=== PATIENT | male | born 1935 ===

== ENCOUNTER 2017-02-11 09:25 | Observation (INO) | payer OTHER ==
[2017-02-11] MEDS ORDERED: ASPIRIN EC 325 MG TAB PO ONE ×2 (09:40→10:17)
[2017-02-11] MEDS ORDERED: NS 1,000 ML IV ONE (09:40)
[2017-02-11] MEDS ORDERED: FAMOTIDINE 20 MG TAB PO ONE (09:40)
[2017-02-11] MEDS ORDERED: DIAZEPAM 5 MG TAB PO ONE (09:40)
[2017-02-11] MEDS ORDERED: diphenhydrAMINE 25 MG CAP PO ONE ×2 (09:40→10:17)
[2017-02-11 10:12] LABS: % IMMATURE GRANULYOCYTES 0.4 % (0.0-1.1); ABSOLUTE IMMATURE GRANULOCYTES 0.03 10^3/uL (0.00-0.10); ADD DIFF? NO; ADD MORPH? NO; ADD SCAN? NO; ATYPICAL LYMPHOCYTE FLAG 0 (0-99); FRAGMENT RBC FLAG 0 (0-99); HEMATOCRIT 50.8 % (40.0-51.0); HEMOGLOBIN 16.9 g/dL (13.7-17.5); LEFT SHIFT FLG 10 (0-99); LIPEMIA HEMOLYSIS FLAG 80 (0-99); MEAN CELL HEMOGLOBIN 30.8 pg (27.9-34.1); MEAN CELL HEMOGLOBIN CONCENTR. 33.3 g/dL (32.4-36.7); MEAN CELL VOLUME 92.7 fL (81.5-99.8); MEAN PLATELET VOLUME 9.5 fL (8.7-11.7); PLATELET CLUMPS FLAG 10 (0-99); PLATELET COUNT 251 10^3/uL (150-400); RED BLOOD CELL COUNT 5.48 10^6/uL (4.40-6.38); RED CELL DISTRIBUTION WIDTH 12.9 % (11.5-15.2)
[2017-02-11] MEDS ORDERED: DIAZEPAM 5 MG TAB ONE (10:17)
[2017-02-11] MEDS ORDERED: FAMOTIDINE 20 MG TAB ONE (10:17)
[2017-02-11 10:25] LABS: INR 1.14 (0.83-1.16); PROTIME(PATIENT) 14.5 SEC (12.0-15.0)
--- NOTE | 2017-02-11 10:28 | CPEKG ---
Heart Rate: 58 RR Interval: 1034 P-R Interval: 172 QRSD Interval: 138 QT Interval: 452 QTC Interval: 445 P Charlotte: -60 QRS Charlotte: -82 T Wave [place]: 18 EKG Severity - ABNORMAL ECG - EKG Impression: SINUS OR ECTOPIC ATRIAL RHYTHM EKG Impression: RIGHT BUNDLE BRANCH BLOCK EKG Impression: unchanged from EKG of 01/12/2016 Electronically Signed By: Indra Gustafson 11-Feb-2017 10:35:01
[2017-02-11 10:33] LABS: ANION GAP 12 mEq/L (8-16); CALCIUM 9.9 mg/dL (8.5-10.4); CARBON DIOXIDE 23 mEq/l (22-31); CHLORIDE 107 mEq/L (97-110); CHOLESTEROL 154 mg/dL (140-220); CHOLESTEROL/HDL RATIO 4.28 RATIO (1.00-4.97); CREATININE 1.1 mg/dL (0.7-1.3); GLOMERULAR FILTRATION RATE > 60; GLUCOSE 79 mg/dL (70-100); HIGH DENSITY LIPOPROTEIN 36 mg/dL (40-65); LDL/HDL RATIO 2.19 RATIO (1.00-3.64); LOW DENSITY LIPOPROTEIN 79 mg/dL (80-100); MAGNESIUM 2.3 mg/dL (1.6-2.3); NON-HIGH DENSITY LIPOPROTEIN 118 mg/dL (90-129); POTASSIUM 4.2 mEq/L (3.5-5.2); SODIUM 142 mEq/L (134-144); TRIGLYCERIDE 197 mg/dL (40-150); VERY LOW DENSITY LIPOPROTEINS 39 mg/dL (8-25)
[2017-02-11] MEDS ORDERED: MIDAZOLAM 2 MG/2 ML VIAL ONE (12:41)
[2017-02-11] MEDS ORDERED: VERAPAMIL 5 MG/2 ML VIAL ONE (12:41)
[2017-02-11] MEDS ORDERED: HEPARIN 10,000 UNIT/10 ML MDV ONE (12:41)
[2017-02-11] MEDS ORDERED: fentaNYL 100 MCG/2 ML INJ ONE (12:41)
[2017-02-11] MEDS ORDERED: LIDOCAINE 1% 300 MG/30 ML SDV ONE (12:41)
[2017-02-11] MEDS ORDERED: IOPAMIDOL (ISOVUE-370) 150 ML BTL IV ONE (12:42)
[2017-02-11] MEDS ORDERED: CLOPIDOGREL BISULFATE 75 MG TAB ONE (14:44)
--- NOTE | 2017-02-11 15:19 | CPEKG ---
Heart Rate: 54 RR Interval: 1111 P-R Interval: 200 QRSD Interval: 130 QT Interval: 472 QTC Interval: 448 P [place]: 52 QRS [place]: -66 T Wave [place]: 41 EKG Severity - ABNORMAL ECG - EKG Impression: SINUS RHYTHM EKG Impression: RBBB AND LAFB Electronically Signed By: Rashi Garcia 12-Feb-2017 12:23:08
[2017-02-11] MEDS ORDERED: CLOPIDOGREL BISULFATE 75 MG TAB PO ONE (18:20)
[2017-02-11] MEDS ORDERED: LORazepam 2 MG/ML INJ IVP PRN (18:20)
[2017-02-11] MEDS ORDERED: ATROPINE SULFATE 1 MG/10 ML SYR IVP PRN (18:20)
[2017-02-11] MEDS ORDERED: ONDANSETRON DISINTEGRATING 4 MG TAB PO PRN (18:20)
[2017-02-11] MEDS ORDERED: ONDANSETRON 4 MG/2 ML VIAL IVP PRN (18:20)
[2017-02-11] MEDS ORDERED: NITROGLYCERIN 0.4 MG BTL SL PRN (18:20)
[2017-02-11] MEDS ORDERED: TEMAZEPAM 15 MG CAP PO PRN (18:20)
[2017-02-11] MEDS ORDERED: ACETAMINOPHEN 325 MG TAB PO PRN (18:20)
[2017-02-11] MEDS ORDERED: NS 1,000 ML IV SCH (18:30)
--- NOTE | 2017-02-11 19:56 | CPEKG ---
Heart Rate: 48 RR Interval: 1250 P-R Interval: 180 QRSD Interval: 142 QT Interval: 464 QTC Interval: 415 P Ace: -67 QRS Ace: -72 T Wave Ace: 38 EKG Severity - ABNORMAL ECG - EKG Impression: SINUS OR ECTOPIC ATRIAL BRADYCARDIA EKG Impression: PROBABLE LEFT ATRIAL ABNORMALITY EKG Impression: RIGHT BUNDLE BRANCH BLOCK EKG Impression: LATERAL INFARCT, OLD Electronically Signed By: Rashi Garcia 12-Feb-2017 12:23:40
--- NOTE | 2017-02-11 20:10 | CPIP ---
[f rep st] INVASIVE CARDIAC PROCEDURE DATE OF PROCEDURE: 02/11/2017 PROCEDURES PERFORMED: 1. Selective coronary angiography. 2. Left heart catheterization. 3. Left ventriculogram. 4. Percutaneous transluminal coronary angioplasty and stent placement to the left anterior descendi ng with the use of a 3.0 x 12 Synergy drug-eluting stent, postdilated with a 3.25 x 12 NC balloon. COMPLICATIONS: None. INDICATION FOR THE PROCEDURE: High risk stress test in a patient with new onset fatigue and nausea. The patient has [place] Heart Association class 3 symptoms of breathlessness with minimal exertio n on the basis of his resting fatigue. The patient had minimal symptoms prior to his heart attack a nd was found to have a new perfusion deficit within the LAD territory with a drop in his ejection fr action to an estimated 30% to 35%. For this reason, he was taken to the catheterization laboratory. PROCEDURE IN DETAIL: After informed consent was obtained, n.p.o. status was confirmed, the region o f the left wrist was cleaned, prepped, and draped in sterile fashion. The modified and plethysmogra phy trace-assisted Jose test was performed, documenting a dual arterial supply of the left index fi nger. A 6-[place] sheath was placed to the left radial artery using modified Seldinger technique. T here was some difficulty in navigating the forearm into the region of the brachial artery. For this reason, a right radial approach would not be recommended in the future. Only we were able to proce ed with diagnostic catheterization with the use of 5-[place] JL4 and JR4 coronary catheters as well a s a 5-[place] Fede right catheter. A 5-[place] pigtail catheter was also utilized. Standard wire exchange technique was utilized for all catheter exchanges. The right coronary artery was 3 mm in size and is dominant giving rise to the posterior descending a s well as a posterolateral ventricular branch. The stent in the midbody of the right coronary arter y is widely patent without evidence of flow-limiting obstruction. There was excellent and JOSE-3 fl ow to the distal vessel. The left main coronary lumen is approximately 6 mm in size. It bifurcates into an LAD and circumflex system. The LAD has been previously stented in the distal margin of the stented segment. There is angiographic evidence on the AP and AP caudal projection of at least a 5 0% angiographic lesion. When we performed PTCA with computerized analysis, this was found to be a 6 9.2 plaque area stenosis in the region corresponding with a nuclear perfusion deficit. There was TI OK-3 flow to the distal vessel without evidence of active clot. There was evidence of dye streaming within the LAD, consistent with abnormal flow characteristics. The left circumflex was free of significant flow-limiting disease. It was unchanged from catheteriz ation performed by mi May of 2014. The patient underwent left heart catheterization demonstrating elevated left ventricular end diastol ic pressure measured at 14 mmHg. The patient underwent left ventriculogram and [facility] left ventricular systolic function. Ejection fraction was 65% without severe segmental wall motion abnormalities. We then turned our attention to the lesion in question. A 6-[place] JL4 guiding catheter was used fo r guide catheter support. A 0.014 [place] J was advanced across the lesion in the LAD. The vessel was then primarily stented with the use of a 3.0 x 12 Synergy drug-eluting stent and was postdilate d for inadequate stent expansion with a noncompliant 3.25 x 12 NC balloon at a maximum of 20 atmosph eres of pressure with approximately a 10% residual stenosis, status post PTCA and stent placement wi th improved flow characteristics post stent and post stent dilation. The patient tolerated the proc edure well without immediate complication. Returned to the post cath recovery unit with a TR band r adial arteriotomy site repair. Copy requested to: Primary Care Physician /[id number]/MODL
[2017-02-12 04:38] LABS: % IMMATURE GRANULYOCYTES 0.3 % (0.0-1.1); ABSOLUTE IMMATURE GRANULOCYTES 0.03 10^3/uL (0.00-0.10); ADD DIFF? NO; ADD MORPH? NO; ADD SCAN? NO; ATYPICAL LYMPHOCYTE FLAG 0 (0-99); FRAGMENT RBC FLAG 0 (0-99); HEMATOCRIT 44.1 % (40.0-51.0); HEMOGLOBIN 15.1 g/dL (13.7-17.5); LEFT SHIFT FLG 10 (0-99); LIPEMIA HEMOLYSIS FLAG 90 (0-99); MEAN CELL HEMOGLOBIN 31.1 pg (27.9-34.1); MEAN CELL HEMOGLOBIN CONCENTR. 34.2 g/dL (32.4-36.7); MEAN CELL VOLUME 90.9 fL (81.5-99.8); MEAN PLATELET VOLUME 10.2 fL (8.7-11.7); PLATELET CLUMPS FLAG 10 (0-99); PLATELET COUNT 217 10^3/uL (150-400); RED BLOOD CELL COUNT 4.85 10^6/uL (4.40-6.38); RED CELL DISTRIBUTION WIDTH 12.8 % (11.5-15.2)
[2017-02-12 05:04] LABS: ALBUMIN 3.3 g/dL (3.5-5.0); ANION GAP 9 mEq/L (8-16); ASPARTATE AMINOTRANSFERASE 17 IU/L (17-59); BILIRUBIN,TOTAL 0.4 mg/dL (0.1-1.4); CARBON DIOXIDE 20 mEq/l (22-31); CHLORIDE 110 mEq/L (97-110); GLOMERULAR FILTRATION RATE > 60; GLUCOSE 85 mg/dL (70-100); LACTATE DEHYDROGENASE 372 IU/L (313-618); MAGNESIUM 2.3 mg/dL (1.6-2.3); POTASSIUM 4.2 mEq/L (3.5-5.2); SODIUM 139 mEq/L (134-144)
[2017-02-12] MEDS ORDERED: LEVOTHYROXINE 112 MCG TAB PO SCH (06:00)
[2017-02-12 07:25] VITALS: BP 130/75; PULSE 66; RESP 13; TEMP 97.6; O2SAT 96
[2017-02-12] MEDS ORDERED: CARVEDILOL 3.125 MG TAB PO SCH (08:00)
[2017-02-12] MEDS ORDERED: ASPIRIN EC 325 MG TAB PO SCH (09:00)
[2017-02-12] MEDS ORDERED: MAGNESIUM OXIDE 400 MG TAB PO SCH (09:00)
[2017-02-12] MEDS ORDERED: CLOPIDOGREL BISULFATE 75 MG TAB PO SCH (09:00)
--- NOTE | 2017-02-12 09:32 | CPEKG ---
Heart Rate: 53 RR Interval: 1132 P-R Interval: 180 QRSD Interval: 136 QT Interval: 456 QTC Interval: 429 P Brooks: -49 QRS Brooks: -70 T Wave Brooks: 33 EKG Severity - ABNORMAL ECG - EKG Impression: SINUS OR ECTOPIC ATRIAL RHYTHM EKG Impression: RIGHT BUNDLE BRANCH BLOCK Electronically Signed By: Indra Gustafson 12-Feb-2017 15:39:58
--- NOTE | 2017-02-12 13:22 | GDS ---
[f rep st] DISCHARGE SUMMARY ADMIT DIAGNOSES: 1. Coronary artery disease. 2. History of right coronary artery and left anterior descending stent. 3. Abnormal nuclear stress test. 4. Hyperlipidemia. DISCHARGE DIAGNOSES: 1. Coronary artery disease. 2. Status post cardiac angiogram with stent placement to the left anterior descending. 3. Cardiomyopathy. 4. Hyperlipidemia. COURSE OF HOSPITALIZATION: This gentleman is well known to Dr. Underwood. He has a history of having had a myocardial infarction with stent placement to the LAD in 2013. He presented to the clinic with complaint of fatigue and nausea. He was experiencing shortness of breath with low level activity. He proceeded with a nuclear imaging test which was found to be positive for cardiac ischemia. His ejection fraction had dropped to an estimated 30% to 35% which was a new finding. He was taken to the cardiac medical lab scientist by Dr. Nabil Underwood on February 11, 2017 where he was able to place a Synergy stent to the left anterior descending. There were no complications. He was then taken to recovery where he did well. He then was taken to PCU for overnight observation. He has done well with no chest pain, nausea, or fatigue since his procedure. He has been up in the room with no problems. At this time, he currently is stable for discharge. ALLERGIES: He has allergies to pravastatin and other statin medications. DISCHARGE MEDICATIONS: He will go home on Plavix 75 mg daily; aspirin 325 mg daily; herbal supplements 1 daily; vitamin D3 at 5000 units daily; beta carotene A 1 tablet daily; omeprazole 20 mg on Saturday, Saturday, Saturday; omeprazole 20 mg twice daily on Saturday, Saturday, , Saturday; magnesium oxide 400 mg daily; Synthroid 112 mcg daily; Coreg 3.125 mg twice daily; Tylenol 325 mg every 4 hours as needed for pain. PHYSICAL EXAMINATION: VITAL SIGNS: On day of discharge, blood pressure 130/75 , heart rate 66 and regular, oxygen saturation 96%, temperature 36.4 Celsius. HEART: Rate regular. No murmurs, rubs, or gallops. LUNGS: Sounds are clear to auscultation. No wheezes, rales, or rhonchi. EXTREMITIES: Right wrist cath access site is intact with no bleeding. There is noted swelling around the site with minimal bruising. He has good ulnar and radial pulses and good capillary refill. Peripheral pulses are 2+ and equal bilaterally with no edema. LABORATORY: On 02/12/2017, white blood count 9.71, hemoglobin 15.1, hematocrit 44.1. Sodium 139, potassium 4.2, BUN 16, creatinine 1.0, magnesium 2.3. AST 17. Lipids: Total cholesterol 154, triglyceride 197, HDL cholesterol 36, LDL cholesterol calculated 79. DISCHARGE PLAN: He has been referred to cardiac rehab for further exercise and muscle conditioning. Dietary guidelines will be reviewed and counseled. Stress management will be reviewed and provided. He is not going home on statin medications as he has had side effects that have affected his memory while he is on them. He is on carvedilol for his low ejection fraction of 30% to 35%. This will be re-evaluated in clinic. He will follow up with Dr. Underwood in 1 week. At this time, he currently is stable for discharge. /[id number]/MODL MTDD
== END 2017-02-12 12:19 | disposition home or self-care (01) ==
LOC: FCATH 09:25 → F2W 15:09
PROVIDERS: ADMIT Internal Medicine Cardiovascular Disease; ATTEND Internal Medicine Cardiovascular Disease
DX: I25.10 Atherosclerotic heart disease of native coronary artery without angina pectoris (principal); Z95.5 Presence of coronary angioplasty implant and graft; I42.9 Cardiomyopathy, unspecified; E78.5 Hyperlipidemia, unspecified
CPT/HCPCS: 93005; 93458; C1725; C1769; C1874; C1887; C9600; G0378; J1644; J2250; J3010; Q9967

== ENCOUNTER → 2017-10-14 | Outpatient (CLI) | payer OTHER | LOC: FIMAGING 15:31 | PROVIDERS: ATTEND Physician Assistant Medical | DX: M79.605 Pain in left leg (principal); M79.89 Other specified soft tissue disorders ==